=== PATIENT | male | born 1965 | race Caucasian/White ===

== ENCOUNTER 2016-11-14 18:51 | Inpatient (IN) | payer OTHER ==
[2016-11-14] MEDS ORDERED: LABETALOL HCL 50 MG/10 ML SYR IVP ONE ×2 (19:12→20:02)
[2016-11-14] MEDS ORDERED: LABETALOL HCL 5 MG/ML 20 ML MDV ONE (19:12)
--- NOTE | 2016-11-14 19:33 | EDPHY ---
H & P Time Seen by Provider: 11/14/16 19:11 HPI/ROS: CHIEF COMPLAINT: High blood pressure, headaches HISTORY OF PRESENT ILLNESS: The patient is a 51-year-old male who presents emergency department from his primary care physician office (Dr. Stewart.) Patient states he has not had any evaluation from a doctor in the past 10 years. 1 year ago he struck his head while at work. He had a hematoma but did not lose consciousness. Since that time he developed severe "migraine headaches." They occur intermittently. When he saw the primary care physician today had a mild dull pain in his head. This was not a typical migraine headache. There she noticed significant hypertension and sent the patient to the emergency department. Patient currently complains of a mild dull headache. No weakness or numbness. No visual change. No neck or chest pain. No nausea or vomiting. REVIEW OF SYSTEMS: My complete review of systems is negative except as mentioned in the HPI. Past Medical/Surgical History: Negative Past surgical history: Tonsillectomy Social history: The patient smoked THC regularly but quit 1 week ago. Smoking Status: Former smoker Physical Exam: Vitals noted. To 66/169, 90, 18, 93% on room air, 37.1 GENERAL: Well-appearing, in no acute distress, alert. HEENT: Eyes normal to inspection, normal pharynx, no signs of dehydration. NECK: No thyromegaly, no lymphadenopathy, supple. RESPIRATORY: Clear to auscultation bilaterally, no rales, rhonchi or wheezing. CVS: Regular rate and rhythm, no rubs, murmurs, or gallops. ABDOMEN: Soft, nontender, nondistended, no organomegaly. BACK: Normal to inspection, no CVA tenderness. SKIN: Normal color, no rash, warm, diaphoresis. No pallor. EXTREMITIES: No pedal edema, no calf tenderness, no Homans sign or cords, no joint swelling. NEURO/PSYCH: Higher functions: Alert and Oriented x3. Normal speech and cognition. Normal mood and affect. Cranial nerves: Normal as tested. Cerebellar: Normal as tested. Good finger to nose, good [id number], normal gait. Peripheral exam: Normal motor exam. Normal sensation. Normal reflexes. Constitutional: Initial Vital Signs Temperature (C) 37.1 C 11/14/16 19:02 Heart Rate 90 11/14/16 19:02 Respiratory Rate 18 11/14/16 19:02 Blood Pressure 266/169 H 11/14/16 19:02 O2 Sat (%) 93 11/14/16 19:02 O2 Delivery Mode Room Air Allergies/Adverse Reactions: No Known Allergies Allergy (Verified 11/14/16 21:19) Home Medications: Medication Instructions Recorded Acetaminophen [Tylenol ES 500 mg 1,000 mg PO TID PRN 11/14/16 (*)] Aspirin [Aspirin 325 mg (*)] 325 - 975 mg PO DAILY PRN 11/14/16 Herbals/Supplements -Info Only 1 ea PO DAILY 11/14/16 ZOLMitriptan [Zomig 2.5MG (*)] 2.5 mg PO DAILY PRN 11/14/16 Medical Decision Making - Diagnostics EKG Interpretation: The sinus rhythm at 65. Normal axis. Prolonged QT. LVH. ST elevation anteriorly. This likely secondary to LVH. EKG 2. Sinus rhythm at 51. Normal axis. Prolonged QT. LVH. ST elevation anteriorly. This seems slightly worse. Imaging Results: Imaging Impressions Chest X-Ray 11/14/16 20:17 Impression: 1. Mild peribronchial thickening suggesting airways disease/bronchitis. 2. Additional findings as above. ED Course/Re-evaluation: In the emergency department I discussed possible etiologies with the patient. I answered all his questions. Laboratory studies, EKG, chest x-ray, head CT were ordered. Patient was given labetalol 10 mg IV. I rechecked the patient on numerous occasions. His blood pressure did initially trend down but then came back up. He is given labetalol 10 mg IV repeat dose. Patient was also given clonidine 0.2 mg orally. I rechecked the patient. He continued to have hypertension. His laboratory studies were noted abnormal. He had a low potassium of 2.5. His creatinine was elevated at 3.0. His troponin was elevated at 0.2. ASA 324 po. Because of the patient's continued elevated pressures he was started on nitroprusside. This will be started at 0.3 micrograms/kilogram per minute. This will be titrated up to 10 micrograms/kilogram per minute to recheck the systolic blood pressure of 170. I discussed the findings with the patient. I answered all his questions. I contacted the hospitalist service for admission. 2100: The patient had a 2nd IV placed. During this time he had a bradycardic event. He became diaphoretic. Pacer pads were placed. He was moved to the resuscitation room. I discussed this with the hospitalist, Dr. cedillo. I paged Cardiology to inform them of the patient's hypertensive emergency, bradycardia and elevated troponin. Repeat EKG was ordered. Repeat EKG shows sinus rhythm at 51. Normal axis. LVH. ST elevation V1 through V3. Flipped T-waves V3 through V 5. This seemed to be slightly increased from the previous EKG. I discussed case with Dr. Derek Mckeon. He agreed with the plan thus far. I paged Dr. Valdivia. I discussed the EKG findings as well as his elevated troponin and presentation. He will review the EKG and call me back. Dr. Valdivia called back. He stated that he felt this was secondary to LVH. He did not want take the patient to the lab specialist at this time with no chest pain and elevated creatinine of 3.0. I explained this in depth to the patient. On recheck the patient's blood pressure had improved on Nipride. Patient has no headache. No chest pain or shortness of breath. Differential Diagnosis: My differential includes but is not limited to hypertensive emergency, hypertensive urgency, subarachnoid hemorrhage, subdural hematoma, epidural hematoma, migraine headaches, pain reaction, anxiety Critical Care Time: The patient required 50 minutes of critical care time. This was exclusive of any unbundled procedure. This was due to the patient's significant hypertension , need for frequent rechecks, IV medications labetalol, consultation with the hospitalist service. - Data Points Laboratory Results: Laboratory Results 11/14/16 19:13 11/14/16 19:13 11/14/16 11/14/16 11/14/16 19:13 19:13 19:13 WBC 11.64 10^3/uL H 10^3/uL (3.80-9.50) RBC 4.12 10^6/uL L 10^6/uL (4.40-6.38) Hgb 13.1 g/dL L g/dL (13.7-17.5) Hct 36.0 % L % (40.0-51.0) MCV 87.4 fL fL (81.5-99.8) MCH 31.8 pg pg (27.9-34.1) MCHC 36.4 g/dL g/dL (32.4-36.7) RDW 13.2 % % (11.5-15.2) Plt Count 126 10^3/uL L 10^3/uL (150-400) MPV 11.8 fL H fL (8.7-11.7) Neut % (Auto) 79.4 % H % (39.3-74.2) Lymph % (Auto) 10.7 % L % (15.0-45.0) [place] % (Auto) 8.6 % % (4.5-13.0) Eos % (Auto) 0.4 % L % (0.6-7.6) Baso % (Auto) 0.6 % % (0.3-1.7) Nucleat RBC Rel Count 0.0 % % (0.0-0.2) Absolute Neuts (auto) 9.24 10^3/uL H 10^3/uL (1.70-6.50) Absolute Lymphs (auto) 1.24 10^3/uL 10^3/uL (1.00-3.00) Absolute Monos (auto) 1.00 10^3/uL H 10^3/uL (0.30-0.80) Absolute Eos (auto) 0.05 10^3/uL 10^3/uL (0.03-0.40) Absolute Basos (auto) 0.07 10^3/uL 10^3/uL (0.02-0.10) Absolute Nucleated RBC 0.00 10^3/uL 10^3/uL (0-0.01) Immature Gran % 0.3 % % (0.0-1.1) Immature Gran # 0.04 10^3/uL 10^3/uL (0.00-0.10) PT 13.4 SEC SEC (12.0-15.0) INR 1.03 (0.83-1.16) APTT 31.9 SEC SEC (23.0-38.0) Sodium 137 mEq/L mEq/L (134-144) Potassium 2.5 mEq/L L* mEq/L (3.5-5.2) Chloride 95 mEq/L L mEq/L (97-110) Carbon Dioxide 27 mEq/l mEq/l (22-31) Anion Gap 15 mEq/L mEq/L (8-16) BUN 46 mg/dL H mg/dL (7-23) Creatinine 3.0 mg/dL H mg/dL (0.7-1.3) Estimated GFR 22 Glucose 122 mg/dL H mg/dL (70-100) Calcium 9.3 mg/dL mg/dL (8.5-10.4) Total Bilirubin 1.1 mg/dL mg/dL (0.1-1.4) Conjugated Bilirubin 0.5 mg/dL mg/dL (0.0-0.5) Unconjugated Bilirubin 0.6 mg/dL mg/dL (0.0-1.1) AST 34 IU/L IU/L (17-59) ALT 39 IU/L IU/L (21-72) Alkaline Phosphatase 66 IU/L IU/L (38-126) Troponin I 0.232 ng/mL H ng/mL (0-0.034) Total Protein 7.3 g/dL g/dL (6.3-8.2) Albumin 4.6 g/dL g/dL (3.5-5.0) Lipase 616.0 IU/L H IU/L (23-300) Medications Given: Discontinued Medications Clonidine (Catapres) 0.2 mg PO EDNOW ONE Stop: 11/14/16 20:04 Last Admin: 11/14/16 20:24 Dose: 0.2 mg Sodium Nitroprusside 50 mg/ (Sodium Chloride) 252 mls @ 0 mls/hr IV EDNOW ONE; Titrate PRN Reason: Protocol Stop: 11/14/16 20:50 Last Admin: 11/14/16 21:10 Dose: 252 mls Labetalol HCl (Labetalol Hcl) 10 mg IVP ONCE ONE Stop: 11/14/16 20:03 Last Admin: 11/14/16 20:05 Dose: 10 mg Labetalol HCl (Labetalol Hcl) 10 mg IVP EDNOW ONE Stop: 11/14/16 19:13 Last Admin: 11/14/16 19:12 Dose: 10 mg Potassium Chloride (Potassium Chloride Oral Liquid) 60 meq PO EDNOW ONE Stop: 11/14/16 20:50 Last Admin: 11/14/16 21:09 Dose: 60 meq Departure - Departure Disposition: [facility] Acute Clinical Impression: Hypertensive emergency, Elevated troponin Hypertension Qualifiers: Hypertension type: essential hypertension Qualified Code(s): I10 - Essential ( primary) hypertension Condition: Good
--- NOTE | 2016-11-14 20:02 | CPEKG ---
Heart Rate: 65 RR Interval: 923 P-R Interval: 168 QRSD Interval: 96 QT Interval: 508 QTC Interval: 529 P Redfield: 30 QRS Redfield: -12 T Wave Redfield: 150 EKG Severity - ABNORMAL ECG - EKG Impression: SINUS RHYTHM EKG Impression: LEFT ATRIAL ABNORMALITY EKG Impression: LVH WITH SECONDARY REPOLARIZATION ABNORMALITY EKG Impression: ANTERIOR ST ELEVATION, PROBABLY DUE TO LVH EKG Impression: PROLONGED QT INTERVAL Electronically Signed By: Roya Alcantar 14-Nov-2016 22:46:27
[2016-11-14 20:24] LABS: % IMMATURE GRANULYOCYTES 0.3 % (0.0-1.1); ABSOLUTE IMMATURE GRANULOCYTES 0.04 10^3/uL (0.00-0.10); ADD DIFF? NO; ADD MORPH? NO; ADD SCAN? NO; ATYPICAL LYMPHOCYTE FLAG 0 (0-99); FRAGMENT RBC FLAG 0 (0-99); HEMOGLOBIN 13.1 g/dL (13.7-17.5); LEFT SHIFT FLG 0 (0-99); LIPEMIA HEMOLYSIS FLAG 90 (0-99); MEAN CELL HEMOGLOBIN 31.8 pg (27.9-34.1); MEAN CELL HEMOGLOBIN CONCENTR. 36.4 g/dL (32.4-36.7); MEAN CELL VOLUME 87.4 fL (81.5-99.8); MEAN PLATELET VOLUME 11.8 fL (8.7-11.7); PLATELET CLUMPS FLAG 0 (0-99); PLATELET COUNT 126 10^3/uL (150-400); RED BLOOD CELL COUNT 4.12 10^6/uL (4.40-6.38); RED CELL DISTRIBUTION WIDTH 13.2 % (11.5-15.2)
[2016-11-14 20:28] LABS: INR 1.03 (0.83-1.16); PROTIME(PATIENT) 13.4 SEC (12.0-15.0)
[2016-11-14 20:29] LABS: APTT 31.9 SEC (23.0-38.0)
[2016-11-14 20:37] LABS: ALANINE AMINOTRANSFERASE 39 IU/L (21-72); ALBUMIN 4.6 g/dL (3.5-5.0); ALKALINE PHOSPHATASE 66 IU/L (38-126); ANION GAP 15 mEq/L (8-16); ASPARTATE AMINOTRANSFERASE 34 IU/L (17-59); BILIRUBIN,TOTAL 1.1 mg/dL (0.1-1.4); BILIRUBIN-CONJUGATED 0.5 mg/dL (0.0-0.5); BILIRUBIN-UNCONJUGATED 0.6 mg/dL (0.0-1.1); CALCIUM 9.3 mg/dL (8.5-10.4); CARBON DIOXIDE 27 mEq/l (22-31); CHLORIDE 95 mEq/L (97-110); GLOMERULAR FILTRATION RATE 22; GLUCOSE 122 mg/dL (70-100); SODIUM 137 mEq/L (134-144); TOTAL PROTEIN 7.3 g/dL (6.3-8.2)
[2016-11-14 20:48] LABS: POTASSIUM 2.5 mEq/L (3.5-5.2); TROPONIN I 0.232 ng/mL (0-0.034)
[2016-11-14] MEDS ORDERED: POTASSIUM CL 20 MEQ/15 ML UDCUP PO ONE (20:49)
[2016-11-14] MEDS ORDERED: NITROPRUSSIDE SODIUM IV ONE (20:49)
[2016-11-14] MEDS ORDERED: NS IV ONE (20:49)
[2016-11-14] MEDS ORDERED: POTASSIUM Cl (KCl) 100 ML IV ONE (20:50)
[2016-11-14] MEDS ORDERED: NITROGLYCERIN/D5W 50 MG/250 ML BOTTLE IV ONE (20:54)
[2016-11-14] MEDS ORDERED: ASPIRIN 81 MG CHEWABLE TAB ONE (21:02)
[2016-11-14] MEDS ORDERED: ASPIRIN 81 MG CHEWABLE TAB PO ONE (21:10)
--- NOTE | 2016-11-14 21:11 | CPEKG ---
Heart Rate: 51 RR Interval: 1176 P-R Interval: 172 QRSD Interval: 90 QT Interval: 548 QTC Interval: 505 P Lexa: 57 QRS Lexa: 12 T Wave Lexa: 134 EKG Severity - ABNORMAL ECG - EKG Impression: SINUS RHYTHM EKG Impression: LVH WITH SECONDARY REPOLARIZATION ABNORMALITY EKG Impression: ANTERIOR ST ELEVATION, PROBABLY DUE TO LVH EKG Impression: PROLONGED QT INTERVAL Electronically Signed By: Roya Alcantar 14-Nov-2016 22:46:27
[2016-11-14 23:24] LABS: ANION GAP 11 mEq/L (8-16); CALCIUM 8.6 mg/dL (8.5-10.4); CARBON DIOXIDE 23 mEq/l (22-31); CHLORIDE 99 mEq/L (97-110); GLOMERULAR FILTRATION RATE 22; GLUCOSE 135 mg/dL (70-100); SODIUM 133 mEq/L (134-144)
[2016-11-14 23:35] LABS: TROPONIN I 0.193 ng/mL (0-0.034)
[2016-11-15] MEDS ORDERED: ONDANSETRON 4 MG/2 ML VIAL IVP PRN (00:34)
[2016-11-15] MEDS ORDERED: NITROPRUSSIDE SODIUM 50 MG in D5W 250 ML IV SCH (01:00)
[2016-11-15 02:12] LABS: COLOR YELLOW; LEUKOCYTE ESTERASE,URINE NEGATIVE (NEGATIVE); NITRITE,URINE NEGATIVE (NEGATIVE)
[2016-11-15 02:17] LABS: MUCUS TRACE /lpf (NONE-1+)
[2016-11-15 04:36] LABS: % IMMATURE GRANULYOCYTES 0.3 % (0.0-1.1); ABSOLUTE IMMATURE GRANULOCYTES 0.02 10^3/uL (0.00-0.10); ADD DIFF? NO; ADD MORPH? NO; ADD SCAN? NO; ATYPICAL LYMPHOCYTE FLAG 0 (0-99); FRAGMENT RBC FLAG 0 (0-99); HEMATOCRIT 27.1 % (40.0-51.0); HEMOGLOBIN 9.5 g/dL (13.7-17.5); LEFT SHIFT FLG 0 (0-99); LIPEMIA HEMOLYSIS FLAG 90 (0-99); MEAN CELL HEMOGLOBIN 31.1 pg (27.9-34.1); MEAN CELL HEMOGLOBIN CONCENTR. 35.1 g/dL (32.4-36.7); MEAN CELL VOLUME 88.9 fL (81.5-99.8); MEAN PLATELET VOLUME 10.5 fL (8.7-11.7); PLATELET CLUMPS FLAG 0 (0-99); PLATELET COUNT 73 10^3/uL (150-400); RED BLOOD CELL COUNT 3.05 10^6/uL (4.40-6.38); RED CELL DISTRIBUTION WIDTH 13.2 % (11.5-15.2)
[2016-11-15] MEDS: ACETAMINOPHEN 500 MG TAB PO PRN (04:48)
[2016-11-15] MEDS: hydrALAZINE 20 MG/ML VIAL IVP PRN (04:50)
[2016-11-15] MEDS: HEPARIN 5,000 UNIT/0.5 ML SYR SC SCH ×3 (04:51→22:34)
--- NOTE | 2016-11-15 06:36 | GHP ---
[f rep st] HISTORY AND PHYSICAL DATE OF ADMISSION: 11/14/2016 CHIEF COMPLAINT: Headache. HISTORY: The patient is a 51-year-old male who has not seen a physician in 10 years. He made an in itial appointment with a primary care provider, Dr. Stewart, today, was found to have a blood pressu re 266/169, and was sent to the emergency room. He has been having headaches for the last year. Th is started with a significant head injury while at work. Over the last year, he has been having adam ernie-like headaches since the head injury including nausea vomiting or photophobia. He has these e very few weeks. Recently they have been coming on with more severity and increased frequency. His most recent headache episode has been going for 6 days. He has also noted shortness of breath with exertion for the last few weeks. His headache gets worse with bending over. He did not have any ch est pain, until after being admitted to ICU he developed a little bit of chest tightness while the e chocardiogram was being performed. This got better when he moved around in the bed. Initial blood pressure was 266/169. He was given IV labetalol and oral clonidine in the emergency r oom. He was then started on a Nipride drip. He had a bradycardic episode with diaphoresis twice si nce admission. Cardiology reviewed his EKGs and felt that the ST elevations were due to LVH, and he was not felt to be a STEMI. No cardiac catheterization has been pursued. They ordered a stat echo which did occur, results pending. PAST MEDICAL HISTORY: Negative. PAST SURGICAL HISTORY: Tonsillectomy. MEDICATIONS: Please see computer record for full detailed list. ALLERGIES: No known drug allergies. SOCIAL HISTORY: No smoking. Occasionally, he will have a beer. He was a daily marijuana smoker bu t quit 1 week ago in an attempt to get healthier. 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 REVIEW OF SYSTEMS: Complete review of systems obtained. Review of systems is negative regarding co nstitutional, HEENT, GI, pulmonary, cardiovascular, , hematology, musculoskeletal, endocrine, psyc h except for positives and negatives as in HPI. FAMILY HISTORY: Father had a CABG in his 70s. He had an aunt who of an [place] in her 80s. There is no reported history of early coronary disease or stroke. PHYSICAL EXAMINATION: GENERAL: Well-developed, well-nourished male in no acute distress. VITAL SI GNS: Temperature is 36.9, pulse 70, blood pressure 155/101, saturating 96% on room air. EYES: Nor mal conjunctivae. Pupils react to light. ENT: Normal ears and nose. Hearing intact. Normal lips and teeth. Oropharynx moist. NECK: Trachea midline. No thyromegaly. CHEST: Normal respiratory effort. Lungs clear to auscultation bilaterally. CARDIOVASCULAR: Regular rate and rhythm. No mu rmur. No lower extremity edema. ABDOMEN: Soft, nontender. No hepatosplenomegaly. SKIN: Warm, d ry, intact without rash. MUSCULOSKELETAL: No cyanosis or clubbing. Strength 5/5 upper and lower e xtremities. NEURO: Cranial nerves intact. Normal sensation to light touch. PSYCH: Alert and sheldon ented x3. Normal affect. Normal judgment and insight. Normal memory. LABORATORY DATA: White count 11.64, hematocrit 36.6, platelets 127. Sodium 137, potassium 2.5, chl oride 95, bicarb 27, BUN 46, creatinine 3.0, glucose 122. LFTs are negative. INR is 1.03. Troponi n 0.232, followup is going down. Lipase is 616. EKG viewed by me. My personal interpretation is normal sinus rhythm. There is some fairly dramatic anterior ST-elevation which may be due to ischemia versus LVH. Chest x-ray is negative. Head CT is negative for anything acute. ASSESSMENT/PLAN: 1. Hypertensive emergency. Continue IV Nipride drip as started in the emergency room. We cannot u se TITO inhibitors due to his creatinine elevation. I am also going to avoid beta-blockers tonight d ue to 2 symptomatic bradycardic episodes he has had since arrival. I will start him on oral Norvasc . We can also use IV hydralazine. 2. Acute renal failure likely secondary to uncontrolled hypertension. Will hydrate with IV fluids. Will check a renal ultrasound as well as a urinalysis and urine electrolytes. 3. ST elevations on EKG with borderline troponin elevation. I suspect this is strain due to his un controlled hypertension more than an acute ischemic event. Cardiology has reviewed his EKG and do n ot plan to proceed with cardiac catheterization tonight especially given the fact this catheterizati on would be high risk with his creatinine elevation. He is chest pain-free. 4. Hypokalemia. He got 60 mEq oral potassium in the ER. Will allow that to absorb and recheck in a few hours. Do not want to aggressively replete given his creatinine level. CODE STATUS: Full. ADMISSION STATUS: Will admit to inpatient as he is critically ill. Anticipate greater than 2 midni ghts for stabilization. DEEP VENOUS THROMBOSIS PROPHYLAXIS: He is high risk. Will place on subcu heparin. /[id number]/MODL
[2016-11-15 06:57] LABS: ANION GAP 9 mEq/L (8-16); CALCIUM 8.1 mg/dL (8.5-10.4); CARBON DIOXIDE 23 mEq/l (22-31); CHLORIDE 99 mEq/L (97-110); CHOLESTEROL 145 mg/dL (140-220); CREATININE 2.9 mg/dL (0.7-1.3); GLOMERULAR FILTRATION RATE 23; GLUCOSE 211 mg/dL (70-100); HIGH DENSITY LIPOPROTEIN 44 mg/dL (40-65); LDL/HDL RATIO 1.89 RATIO (1.00-3.64); LOW DENSITY LIPOPROTEIN 83 mg/dL (80-100); MAGNESIUM 2.2 mg/dL (1.6-2.3); NON-HIGH DENSITY LIPOPROTEIN 101 mg/dL (90-129); POTASSIUM 2.8 mEq/L (3.5-5.2); SODIUM 131 mEq/L (134-144); TRIGLYCERIDE 94 mg/dL (40-150); VERY LOW DENSITY LIPOPROTEINS 18 mg/dL (8-25)
[2016-11-15 07:08] LABS: TROPONIN I 0.218 ng/mL (0-0.034)
[2016-11-15] MEDS ORDERED: hydrALAZINE 20 MG/ML VIAL IVP ONE (07:45)
[2016-11-15] MEDS ORDERED: POTASSIUM CL 20 MEQ TAB PO ONE (07:45)
[2016-11-15] MEDS ORDERED: ALTEPLASE 2 MG VIAL IVP PRN (07:47)
--- NOTE | 2016-11-15 08:02 | ECHO ---
[id number] + + [address] : : [place] [address] : : [phone] + + Adult Echocardiographic Report + --------+ :Name: JESÚS CORTEZ Bravoivis Date: 11/14/2016 11:25 PM BP: 152/97 mm Hg : : Hospital Admission Number: [id number] Locat ion: 247: :: 1965 Gender: Male Height: 72 in : :Age: 51 yrs Race: WH Weight: 203 l b : :Reason For Study: r/o ai : : BSA: 2.1 mete rs2 : :History: htn : + --------+ MMode/2D Measurements \T\ Calculations IVSd: 1.8 cm RVDd: 3.2 cm FS: 36.8 % Ao root diam: LVPWd: 1.7 cm LVIDd: 5.6 cm EDV(Teich): 3.0 cm LVIDs: 3.5 cm 150.8 ml LA dimension: ESV(Teich): 4.8 cm 51.2 ml EF(Teich): 66.1 % LVLd ap4: 11.4 cm SV(MOD-sp4): EDV(MOD-sp4): 182.0 ml 267.0 ml LVLs ap4: 9.2 cm ESV(MOD-sp4): 85.0 ml EF(MOD-sp4): 68.2 % Normal Measurement Values: + + :LVIDd (3.5-5.7cm) IVSd (0.6-1.1cm) LVPWd (0.6-1.1cm) Aortic Root (2.0-3.7cm)Left Atrium (1.5-4.0cm): :LV Vol(d) (76-115ml) LV Vol(s) (29-48ml) Ejec Fraction (50-65%)PV Gilmer (0.6- 1.2m/s) TV Gilmer (0.4-1.0m/s) : :MV E Gilmer (0.8-1.0m/s)MV A Gilmer (0.3-1.0m/s)LVOT Gilmer (0.7-1.2m/s) Asc Ao Gilmer ( 0.9-1.8m/s) : + + Doppler Measurements \T\ Calculations MV E max gilmer: Ao V2 max: AI max gilmer: LV V1 max: 74.5 cm/sec 132.7 cm/sec 492.5 cm/sec 118.0 cm/sec MV A max gilmer: Ao max PG: AI max P.7 mmHg LV V1 max P.4 cm/sec 7.0 mmHg AI dec slope: 5.6 mmHg MV E/A: 0.88 232.7 cm/sec2 MV dec time: AI P1/2t: 619.8 msec 0.20 sec PA V2 max: 107.5 cm/sec PA max P.6 mmHg Left Ventricle The left ventricle is normal in size and function. There is severe concentric left ventricular hypertrophy. Ejection Fraction = 65%. No regional wall motion abnormalities noted. Right Ventricle The right ventricle is normal in size and function. Atria The left atrium is severely dilated. The Left Atrial Volume is 51 ml/m2. Right atrial size is normal. Mitral Valve The mitral valve is normal in structure and function. There is no mitral valve stenosis. There is mild mitral regurgitation. Tricuspid Valve The tricuspid valve is normal in structure and function. There is no tricuspid stenosis. No tricuspid regurgitation. Aortic Valve The aortic valve is trileaflet. There is no aortic stenosis. Moderate aortic regurgitation. Pulmonic Valve The pulmonic valve is normal in structure and function. Trace pulmonic valvular regurgitation. Great Vessels The aortic root is normal size. Mildly dilated ascending aorta. Conclusion A two-dimensional transthoracic echocardiogram with M-mode and Doppler was performed. The left ventricle is normal in size and function. There is severe concentric left ventricular hypertrophy. Ejection Fraction = 65%. The left atrium is severely dilated. The Left Atrial Volume is 51 ml/m2. There is mild mitral regurgitation. Moderate aortic regurgitation. Trace pulmonic valvular regurgitation. Mildly dilated ascending aorta. Final Reading Physician: Renard Crowe signed on 11/15/2016 08:01 AM Ordering Physician: Hailee Thompson Performed By: Celine Damico
[2016-11-15] MEDS: ASPIRIN EC 325 MG TAB PO SCH (08:20)
[2016-11-15] MEDS: niCARdipine/NACL 200 ML IV SCH ×6 (08:20→22:34)
--- NOTE | 2016-11-15 08:47 | CPEKG ---
Heart Rate: 81 RR Interval: 741 P-R Interval: 160 QRSD Interval: 96 QT Interval: 412 QTC Interval: 479 P Iuka: 59 QRS Iuka: 9 T Wave Iuka: 171 EKG Severity - ABNORMAL ECG - EKG Impression: SINUS RHYTHM EKG Impression: BIATRIAL ABNORMALITIES EKG Impression: LVH WITH SECONDARY REPOLARIZATION ABNORMALITY EKG Impression: BORDERLINE PROLONGED QT INTERVAL Electronically Signed By: Tita Osborne 15-Nov-2016 17:05:55
--- NOTE | 2016-11-15 08:57 | GCON ---
[f rep st] CONSULTATION CARDIAC CONSULTATION DATE OF CONSULTATION: 11/15/2016 CHIEF COMPLAINT: Hypertensive emergency, abnormal EKG. HISTORY OF PRESENT ILLNESS: This is a 51-year-old gentleman who has not seen a physician in over 10 years. He apparently had some head trauma at work a year ago and has had some migraines. Yesterda y he saw his primary care doctor because of these migraines and that he had a significantly elevated blood pressure in the 250/160 range. He was sent to the emergency room where he was not complainin g of any chest pain, shortness of breath, palpitations, or syncope. His EKG showed LVH with nonspec ific anterior ST changes on 2 subsequent EKGs. His blood pressure was initially controlled with melanie e labetalol, however, he had what appeared to be a vasovagal reaction. He does have a significant n eedle phobia. He was then placed on Nipride with benefits. His troponins were mildly elevated in t he indeterminate range. He had an echocardiogram which subsequently showed significant concentric L VH, mild aortic insufficiency, mild tricuspid and mitral insufficiency, no pulmonary hypertension. The patient did not have a regional wall motion abnormality. Also of note, was that his potassium w as 2.5, his creatinine was 3.0. Once again, the patient had not seen a physician in over 10 years b ut in speaking to him and confirmed by his , he has been active without active GI or complain ts, no diarrhea, no other issues of fever, chills, nausea, vomiting. PAST MEDICAL HISTORY: Migraines. SURGICAL HISTORY: Tonsillectomy. MEDICATIONS: He was taking no medicines at home. ALLERGIES: No known allergies. EXAM: VITAL SIGNS: Blood pressure is 169/92, however, it has been fluctuating. The patient is on IV Nipride. GENERAL: He is in no acute distress. He is seen with his . MOUTH: Oropharynx is clear and moist. LUNGS: Clear. CARDIOVASCULAR: Regular rate and rhythm with a systolic murmur. No JVP or HJR. ABDOMEN: Soft and nontender. MUSCULOSKELETAL: No signs of clubbing or edema. ASSESSMENT: Hypertension urgency, question chronicity especially given his lack of medical care. A t this point, he is not having any acute coronary syndrome. He does have a flat indeterminate tropo neal bump. EKG showed nonspecific anterior changes probably secondary to LVH. EKG confirms severe c oncentric LVH without ischemic wall motion abnormality. The patient has been on IV Nipride at this point. Clearly given this patient's clinical presentation, hypokalemia, probable acute if not acute /chronic renal failure, hypertension, whether these are related needs to be sorted out. I did make a call into Checo Maradiaga of renal who will see the patient as well. A renal ultrasound was done. I t alked to the and at length about our findings; and at this point, he will need hospital ization to figure out the causative agents for his various abnormalities. The patient has a signifi cant needle phobia. A PICC line will be performed. He has received p.o. and IV potassium last even ing but continues to have a low potassium, no arrhythmias are noted. PLAN: 1. Hypertension control. 2. Electrolyte replacement. 3. Renal consult to help direct further workup as needed. Questions were answered. Further care dependent on his clinical course. /[id number]/MODL
[2016-11-15] MEDS ORDERED: ENOXAPARIN 40 MG/0.4 ML SYR SC SCH (09:00)
--- NOTE | 2016-11-15 09:42 | SOAPPROG ---
SOAP Progress Note Assessment/Plan: Assessment:Plan: Consult Performed HTN Severe LVH Moderate AI Hypokalemia Renal Failure Hematuria and Proteinuria Anemia and Thrombocytopenia Vasovagal/Bradycardia with blood draws Headaches WM changes on CT head Mild confusion Assess for secondary HTN Start Nicardipine drip to take place of IV nipride Start scheduled PO hydralazine Continue prn IV hydralazine Continue PO amlodipine Replace K with scheduled and prn dosing Serologic work-up for hematuria and proteinuria Sondra, renin, plasma catecholamines Add low-dose TITO-i once sondra and renin obtained Consider repeat challenge with low-dose labetalol if no further bradycardia 11/15/16 09:42 Objective: Vital Signs Temp Pulse Resp BP Pulse Ox 36.9 C 82 17 169/96 H 100 11/14/16 22:28 11/15/16 05:33 11/15/16 05:33 11/15/16 08:20 11/15/16 05:33 Laboratory Results 11/15/16 04:20 11/15/16 04:20 11/14/16 11/15/16 11/16/16 05:59 05:59 05:59 Intake Total 1729 400 Output Total 280 250 Balance 1449 150 PT 13.4 SEC (12.0-15.0) 11/14/16 19:13 INR 1.03 (0.83-1.16) 11/14/16 19:13 ICD10 Worksheet Patient Problems: Problems Problem Status Onset Elevated troponin Acute Hypertension Acute Hypertensive emergency Acute
--- NOTE | 2016-11-15 09:43 | HOSPPROG ---
Hospitalist Progress Note Assessment/Plan: #Hypertensive emergency: -appreciate Dr. Mckeon's, Dr. Maradiaga's consultation -cont IV Nicardipine due low supply nipride. Scheduled Hydral -caution with Labetalol with severe bradycardia in ER - CTH negative for ischemia #ARF vs. CKD: appreciate renal consultation -full evaluation including aldosterone, renin, complements, LEONA, ANCA, SPEP, mets -start ACEI once labs obtained. No renal artery stenosis on US #Indeterminate troponin -due to elevated BP. Not acutely having ACS. EKG with LVH, no wall motion abnormalities #Nausea: related to HTN, improved with BP reduction #Hypokalemia: repleting #Hypovolemic hyponatremia -give IVFs despite high BP, bc these patients in fact are very volume-depleted #Diet: regular #DVT ppx: SQH Disp: warrants ICU admission with HTN emergency. Cont IV anti-hypertensives, telemetry Subjective: no AVALOS or nausea this morning. No CP or SOB Objective: Vital Signs Temp Pulse Resp BP Pulse Ox 36.9 C 82 17 169/96 H 100 11/14/16 22:28 11/15/16 05:33 11/15/16 05:33 11/15/16 08:20 11/15/16 05:33 Laboratory Results 11/15/16 04:20 11/15/16 04:20 11/14/16 11/15/16 11/16/16 05:59 05:59 05:59 Intake Total 1729 400 Output Total 280 250 Balance 1449 150 PT 13.4 SEC (12.0-15.0) 11/14/16 19:13 INR 1.03 (0.83-1.16) 11/14/16 19:13 - Physical Exam Constitutional: no apparent distress Eyes: PERRL Ears, Nose, Mouth, Throat: moist mucous membranes, hearing normal Cardiovascular: regular rate and rhythym, no murmur, rub, or gallop, systolic murmur, edema (no LE edema) Respiratory: no respiratory distress Gastrointestinal: normoactive bowel sounds, soft, non-tender abdomen Genitourinary: no bladder fullness Musculoskeletal: full muscle strength Neurologic: AAOx3 Psychiatric: interacting appropriately ICD10 Worksheet Patient Problems: Problems Problem Status Onset Elevated troponin Acute Hypertension Acute Hypertensive emergency Acute
[2016-11-15] MEDS: POTASSIUM CL 20 MEQ TAB PO SCH ×3 (11:40→20:04)
[2016-11-15] MEDS: hydrALAZINE 25 MG TAB PO SCH ×3 (11:40→20:04)
--- NOTE | 2016-11-15 12:17 | GCON ---
[f rep st] CONSULTATION NEPHROLOGY CONSULTATION. DATE OF CONSULTATION: 11/15/2016 REASON FOR CONSULTATION: 1. Hypertension. 2. Hypokalemia. 3. Increased creatinine. 4. Hematuria, proteinuria. RECOMMENDATION: 1. Start oral medications. 2. Change from IV Nipride to IV nicardipine due to issues getting consistent supply of Nipride. 3. Continue current calcium channel malathi. 4. Use scheduled hydralazine 25 mg 4 times daily. 5. Continue IV intermittent hydralazine p.r.n. blood pressures greater than 160 systolic. 6. Target blood pressures per Cardiology's recommendation. They have currently desired blood pressures of 130-150 systolic. 7. Perform serologic workup due to the patient's hematuria and proteinuria. 8. Quantify urine protein. 9. Check plasma renin aldosterone and plasma catecholamines. 10. Consider trial of low-dose labetalol if the patient does not experience any further bradycardia. 11. Follow up on renal ultrasound results. 12. Supplement potassium with scheduled as well as p.r.n. dosing. 13. Consider further imaging once results of his blood tests and renal ultrasound have returned. 14. Start low-dose TITO inhibitor once his blood work has been obtained. I will order the dose once nurses confirm his renin and aldosterone samples have been obtained. 15. Start regular diet. 16. Placed PICC line as planned. 17. Continue gentle IV hydration. HISTORY: The patient is a very pleasant 51-year-old male I have been asked to consult on by Dr. Derek Mckeon regarding his severe hypertension. He had been having trouble with headaches. He evidently sought attention at his primary care doctor's office. There, his blood pressure was found to be extremely elevated. He was sent to the emergency room for further evaluation and treatment. In the emergency room, his blood pressure was found to be as high as 266/169. He was placed on IV medications in the form of Nipride. He was given 2 doses of labetalol 10 mg IV. Concurrent with his labetalol dosing, the patient was undergoing a blood draw. He has significant fear of venipuncture. He experienced bradycardia per Dr. Mckeon's report as low as 20, but I see a heart rate of 45 documented here in the chart. It sounds like he had 1 other episode of bradycardia associated with either a blood draw or flushing of his IV here in the ICU. For this reason, additional doses of labetalol have not been used. The patient is going to get a PICC line so that blood sampling can be performed with hopefully less complications. Evidently, the patient has been responsive to Nipride but there are currently issues with getting a regular supply of this. For this reason, Dr. Mckeon ordered nicardipine this morning. The patient has been getting p.r.n. hydralazine. He has gotten p.r.n. clonidine. He has been started on amlodipine 10 mg a day. PAST MEDICAL HISTORY: Remarkable for the fact he has had no medical care. He describes having intermittent headaches that were not severe in nature prior to this. He would have headaches associated with caffeine withdrawal. Occasionally, he would have an aura of colors associated with his headaches. Over the last year, his headaches have been more severe. He describes this as being precipitated by a head injury at work. He evidently hit his head quite severely when getting up from underneath a stage that he was working on. 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 Evidently, he was getting out from under such a stage of a portable set when he hit his head on a steel support when standing up. He had a very large lump on his head. He had headaches during this time. 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 He experience head, neck and shoulder pain. He said he had symptoms of nausea, poor appetite, and felt like he could not think straight as a result of those 2 episodes. He never sought medical attention for these symptoms. His symptoms gradually cleared but he continued to have intermittent severe headaches that were sometimes associated with this visual aura of colors. He says the aura typically lasts 20 minutes. Sometimes it is followed by a headache and sometimes it is not. There are no clear precipitating factors to these headaches. He has not had any recent checks of his blood pressure. He describes 6 years ago having a blood pressure check in the grocery store where he saw his blood pressure was near the normal range. He does not remember any of the readings. PAST MEDICAL HISTORY: His only other medical history is surgical history for tonsillectomy. FAMILY HISTORY: He has family history of coronary disease with his father having a bypass surgery when he was 70. His father also had hypertension. He does not describe any early onset hypertension in his family. He does have an aunt on his father's side who had coronary disease and a fatal NV at age 80. SOCIAL HISTORY: His father was a family practitioner out in [place]. The patient is 1 of 3 brothers. He grew up in [place]. He went to school for a few years at [employer]. He moved to [place] 22 years ago and has been in [place] the last 21 years. His is a schoolteacher at [employer]. They have no children. He states he tends to get nauseated when he has an empty stomach. Even if he drinks fluids, he remains nauseated, but this does seem to help. 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 He has no recent diarrheal illnesses. He does not eat beef. The remainder of his family and social history are noncontributory. He has had no joint pains. He has no skin rashes. He uses saw palmetto, a homeopathic sleep aid and a Men' s over 50 MVI. He has used cannabis up until this last week or so. He does not take any other OTC's, recreational drugs or other supplements. PHYSICAL EXAMINATION: VITAL SIGNS: His blood pressures were as low as the 120s over 70s when I was examining. At that time, the Nipride ran out and his blood pressure quickly went up to readings of 180/100. APPEARANCE: No apparent distress. SKIN: Unremarkable. HEENT: Atraumatic, normocephalic. NECK: Unremarkable. HEART: Regular, a split S2. LUNGS: Clear. ABDOMEN: Benign. Positive bowel sounds. Soft, nontender. No rebound or guarding. EXTREMITIES: Free of edema. Distal pulses intact. Femoral pulses 3/4 without bruits. No abdominal bruits noted. Carotid upstrokes are normal without bruits. Radial pulses are symmetric and strong. LABORATORY: Urinalysis on admission showed blood and protein with 3+ protein and 2+ blood. On my exam today, he has 1+ protein and no blood on dipstick. Microscopic shows granular casts, broad casts, waxy casts, and 1 white blood cell casts. He has no dysmorphic red blood cells. He does not have any other suggestion of an active urinary sediment. He does have some muddy brown casts as one might expect with this severe high blood pressure suggesting some tubular injury. Urine sodium was 17, urine creatinine 130. Hematology: He had a platelet count that was low at 126 on admission. That has gone down to 73. Hematocrit 36 going down to 27. Chemistry shows a potassium as low as 2.5 and creatinine of 3 that is unchanged overnight. His potassium has come up slightly. ASSESSMENT: Renal insufficiency. It is hard to know how much of this is acute versus chronic. With the presence of broad and waxy casts, there certainly has to be some chronic kidney injury in this patient. Another issue that suggests that his hypertension has been severe and chronic is the severe left ventricular hypertrophy noted on his echocardiogram. He has both left ventricular hypertrophy as well as some aortic insufficiency with a preserved left ventricular ejection fraction. Although he does have hematuria and proteinuria on dipstick, I do not think a primary nephritic disorder is responsible for the patient's current presentation. I think I am obligated to perform serologic workup in this setting, although I suspect it will be negative. He has severe high blood pressure. He needs a complete secondary hypertension workup, which is underway. Even though he presents with extremely high blood pressure, this could represent essential hypertension that has accelerated in the untreated state. We will see how easily his blood pressure comes under control once we are able to get him on a combination of oral agents. I will start an TITO inhibitor once we get his renin and aldosterone levels drawn. Continuing IV fluid as well as potassium supplementation in the acute setting is important to help counteract some of the dysregulation the patient is experiencing. I expect the hematuria and proteinuria on dipstick is an acute finding and will go away once his blood pressure comes under control. At the present time, we will follow up on his ultrasound reports. He does not need other imaging of his renal arteries or his adrenal glands at this time until we get the results from his blood testing. Acutely, I would check plasma catecholamines, aldosterone, and renin. I would not perform other testing until his blood pressure has been adequately controlled. Other testing in the acute setting can lead to false negative or indeterminate results that would not be helpful with regard to guiding therapy at this time. Although he has anemia and thrombocytopenia, I do not think these findings in isolation are likely to represent hemolytic uremic syndrome or thrombotic thrombocytopenic purpura. I do not think he needs acute treatment with plasmapheresis for the hypertension and renal failure as I think those diagnoses are unlikely to be causing his current illness. /[id number]/MODL MTDD
[2016-11-15] MEDS: NS 1,000 ML IV SCH (12:43)
[2016-11-15 15:42] LABS: POTASSIUM 2.8 mEq/L (3.5-5.2)
[2016-11-15] MEDS: POTASSIUM Cl (KCl) 100 ML IV SCH ×2 (17:17→17:18)
[2016-11-15] MEDS: LISINOPRIL 5 MG TAB PO SCH (17:40)
--- NOTE | 2016-11-15 21:28 | GCON ---
[f rep st] CONSULTATION CRITICAL CARE CONSULT. DATE OF CONSULTATION: 11/15/2016 HISTORY: This patient is a 51-year-old male, who is not normally followed by any healthcare provide rs, who was found to have blood pressure when he finally did see a primary care doctor of 266/169. He was sent to the emergency department and did complain of intermittent headaches over the last yea r, thought to be migraines. He did have a head injury over a year ago and has been having complaint s of bad headaches since that time that have been associated with nausea, vomiting, and some photoph obia. Once he was found to have a very high blood pressure, he was give IV labetalol and clonidine in the emergency department and started on a Nipride drip. He did have a brief period of bradycardi a with blood draws and came up to the ICU on drip, which has kept his blood pressure under control c urrently. REVIEW OF SYSTEMS: Otherwise negative. PAST MEDICAL HISTORY: None until now. PAST SURGICAL HISTORY: Remote tonsillectomy. ALLERGIES: None. SOCIAL HISTORY: He is a nonsmoker. Has a rare beer, but no IV drug use. FAMILY HISTORY: Includes coronary disease but no stroke. MEDICATIONS: Include aspirin, heparin, hydralazine which was started on a scheduled dose today, mor phine p.r.n., Cardene drip, Zofran, potassium, and Zomig. PHYSICAL EXAMINATION: VITAL SIGNS: His blood pressure now 138/69, heart rate of 75, respirations 1 4, oxygen saturation is 95% on room air. GENERAL: He was awake and alert in no apparent distress, able to speak in full sentences without using accessory muscles for breathing. HEENT: Pupils are e qually round and reactive to light, nonicteric and noninjected. Moist membranes are moist without e rythema or exudate. NECK: Supple without adenopathy or jugular vein distention. Breath sounds wer e clear to auscultation bilaterally without wheezes, rubs, rales. HEART: Regular rate and rhythm w ithout murmurs, rubs or gallops. ABDOMEN: Soft, nontender, nondistended without hepatosplenomegaly . EXTREMITIES: No clubbing, cyanosis or edema. NEUROLOGIC: Nonfocal including cranial nerves and deep tendon reflexes. OBJECTIVE DATA: White count was 11.6 yesterday. It is now 7.4. Hematocrit 27, platelets of 73. S odium is 131, potassium 2.8, chloride 88, bicarb 23, BUN 44, creatinine 2.9, magnesium 2.2. BNP 16, 700. Troponin was 0.193, went up to 0.218. Lipase was 616. Urinalysis showed 3+ protein, 2+ blood , and sodium of 17. An echocardiogram was performed yesterday that showed no wall motion abnormalit ies, an ejection fraction of 65%, but severe concentric left ventricular hypertrophy. ASSESSMENT: 1. Hypotensive emergency. His blood pressure has gotten better and is probable too low for his nor mal pressure. Renal consult has been involved and is managing his workup for secondary causes, thou yael the leading diagnosis at this point is poorly controlled essential hypertension. 2. Troponin leak. I think with that high of a blood pressure and his acute kidney injury, that thi s is not likely to be ischemia, and I believe Cardiology is already involved. 3. Acute kidney injury. Again, probably related to hypertension. He has excellent urine output. Urine studies are currently pending. /[id number]/MODL
[2016-11-15 23:03] LABS: POTASSIUM 3.6 mEq/L (3.5-5.2)
[2016-11-16 05:21] LABS: ALBUMIN 3.2 g/dL (3.5-5.0); ANION GAP 6 mEq/L (8-16); CALCIUM 8.4 mg/dL (8.5-10.4); CARBON DIOXIDE 21 mEq/l (22-31); CHLORIDE 106 mEq/L (97-110); CREATININE 3.1 mg/dL (0.7-1.3); GLOMERULAR FILTRATION RATE 21; GLUCOSE 90 mg/dL (70-100); MAGNESIUM 2.2 mg/dL (1.6-2.3); POTASSIUM 3.7 mEq/L (3.5-5.2); SODIUM 133 mEq/L (134-144)
[2016-11-16] MEDS: HEPARIN 5,000 UNIT/0.5 ML SYR SC SCH ×3 (06:09→21:28)
[2016-11-16] MEDS: hydrALAZINE 25 MG TAB PO SCH ×4 (06:10→20:07)
[2016-11-16] MEDS: niCARdipine/NACL 200 ML IV SCH ×2 (06:13→08:20)
[2016-11-16] MEDS: NS 1,000 ML IV SCH (06:13)
[2016-11-16] MEDS: LISINOPRIL 5 MG TAB PO SCH (08:20)
[2016-11-16] MEDS: POTASSIUM CL 20 MEQ TAB PO SCH ×3 (08:20→20:07)
[2016-11-16] MEDS: ASPIRIN EC 325 MG TAB PO SCH (08:21)
--- NOTE | 2016-11-16 10:04 | HOSPPROG ---
Hospitalist Progress Note Assessment/Plan: #Hypertensive emergency: -appreciate Dr. Mckeon's, Dr. Maradiaga's consultation -titrate off Cardene. Scheduled Hydral. Lisinopril, Norvasc -caution with Labetalol with severe bradycardia in ER - CTH negative for ischemia #ARF vs. CKD: appreciate renal consultation -awaiting serologic/immunologic labs - No renal artery stenosis on US #Indeterminate troponin -due to elevated BP. Not acutely having ACS. EKG with LVH, no wall motion abnormalities #Nausea: resolved. Related to HTN, improved with BP reduction #Hypokalemia: repleted #Hypovolemic hyponatremia -give IVFs despite high BP, bc these patients in fact are very volume-depleted #Diet: regular #DVT ppx: SQH Disp: warrants ICU admission with HTN emergency. Cont IV anti-hypertensives, telemetry Subjective: no AVALOS, CP or nausea Objective: Vital Signs Temp Pulse Resp BP Pulse Ox 37.1 C 85 16 156/70 H 98 11/16/16 00:00 11/16/16 07:00 11/16/16 07:00 11/16/16 08:21 11/16/16 07:00 Laboratory Results 11/15/16 04:20 11/16/16 04:55 11/15/16 11/16/16 11/17/16 05:59 05:59 05:59 Intake Total 1729 4566 Output Total 280 1650 250 Balance 1449 2916 -250 PT 13.4 SEC (12.0-15.0) 11/14/16 19:13 INR 1.03 (0.83-1.16) 11/14/16 19:13 - Physical Exam Constitutional: no apparent distress Eyes: PERRL Ears, Nose, Mouth, Throat: moist mucous membranes, hearing normal Cardiovascular: systolic murmur (2/6 murmur RLSB), edema (no edema) Respiratory: no respiratory distress, no rales or rhonchi Gastrointestinal: normoactive bowel sounds, soft, non-tender abdomen Genitourinary: no bladder fullness Skin: warm Musculoskeletal: full muscle strength Neurologic: AAOx3 ICD10 Worksheet Patient Problems: Problems Problem Status Onset Elevated troponin Acute Hypertension Acute Hypertensive emergency Acute
--- NOTE | 2016-11-16 11:55 | SOAPPROG ---
SOAP Progress Note Assessment/Plan: Assessment: HTN better, bp about at goal SBP 150-160's tolerating PO meds hydralazine 25 QID norvasc 10 D lisinopril 5 D Nicardipine is off KATIE vs CKD-4, creat stable about 3 headache is better with improved BP Plan: await serologic/immunologic work up results continue PO meds frequent BP checks follow lytes vol and renal function no urgent HD needs at this point 11/16/16 11:50 Subjective: feels a lot better than he did 2 days ago denies fever chills nausea or vomiting headache nearly completely gone appetite OK still not a lot of energy spirits good Objective: Vital Signs Temp Pulse Resp BP Pulse Ox 37.1 C 85 16 156/70 H 98 11/16/16 00:00 11/16/16 07:00 11/16/16 07:00 11/16/16 08:21 11/16/16 07:00 Laboratory Results 11/15/16 04:20 11/16/16 04:55 11/15/16 11/16/16 11/17/16 05:59 05:59 05:59 Intake Total 1729 4566 Output Total 280 1650 250 Balance 1449 2916 -250 PT 13.4 SEC (12.0-15.0) 11/14/16 19:13 INR 1.03 (0.83-1.16) 11/14/16 19:13 Physical Exam - Physical Exam General Appearance: alert, no apparent distress Respiratory: lungs clear, No rales, No rhonchi, No wheezing Cardiac/Chest: regular rate, rhythm, systolic murmur, No gallop, No friction rub Abdomen: normal bowel sounds, non-tender, soft Neuro/Psych: alert, normal mood/affect, oriented x 3 ICD10 Worksheet Patient Problems: Problems Problem Status Onset Elevated troponin Acute Hypertension Acute Hypertensive emergency Acute
[2016-11-16] MEDS: hydrALAZINE 20 MG/ML VIAL IVP PRN ×2 (13:11→22:24)
[2016-11-16 13:54] LABS: GLOMERULAR BSMNT MEMBRANE IGG <0.2 U
[2016-11-16 15:35] LABS: C3 COMPLEMENT COMPONENT 70 mg/dL (75 - 175); C4 COMPLEMENT COMPONENT 19 mg/dL (14 - 40)
--- NOTE | 2016-11-16 15:35 | PDINTPN ---
Network Technical Analyst Progress Note Assessment/Plan: Assessment/plan: 51 M admitted with hypertensive emergency after c/o headaches and found to have BP around 250/170 and with KATIE. Treated with nipride then nicardipine drips and added oral HTN meds with good response. Good UOP and improved creatinine. * HTN- previously unrecognized but better now on multiple oral meds. Renal work- up underway. * KATIE- probably from untreated HTN, though other etiologies not yet ruled out. * * OK for floor Objective: Vital Signs Temp Pulse Resp BP Pulse Ox 37.1 C 85 16 168/89 H 98 11/16/16 00:00 11/16/16 07:00 11/16/16 07:00 11/16/16 13:11 11/16/16 07:00 Laboratory Results 11/15/16 04:20 11/16/16 04:55 11/15/16 11/16/16 11/17/16 05:59 05:59 05:59 Intake Total 1729 4566 Output Total 280 1650 250 Balance 1449 2916 -250 PT 13.4 SEC (12.0-15.0) 11/14/16 19:13 INR 1.03 (0.83-1.16) 11/14/16 19:13 Physical Exam - Physical Exam General Appearance: WD/WN, alert, no apparent distress EENT: PERRL/EOMI Neck: supple Respiratory: lungs clear, normal breath sounds, No respiratory distress Cardiac/Chest: normal peripheral pulses, regular rate, rhythm, No edema Abdomen: non-tender, soft, No distended Skin: normal color, warm/dry Lymphatic: no adenopathy Neuro/Psych: alert, normal mood/affect, oriented x 3 ICD10 Worksheet Patient Problems: Problems Problem Status Onset Elevated troponin Acute Hypertension Acute Hypertensive emergency Acute
[2016-11-16 16:02] LABS: IG KAPPA FREE LIGHT CHAIN 4.43 mg/dL; IG LAMBDA FREE LIGHT CHAIN 2.36 mg/dL; KAPPA/LAMBDA RATIO 1.88
[2016-11-16] MEDS: ACETAMINOPHEN 500 MG TAB PO PRN (19:24)
[2016-11-16] MEDS: SENNOSIDES/DOCUSATE SODIUM TAB PO PRN (20:52)
--- NOTE | 2016-11-16 21:42 | PDCARPN ---
Cardiology Progress Note Assessment/Plan: 51-year-old male admitted with hypertensive urgency after presenting with headache. Echocardiogram demonstrates normal left ventricular systolic function and LVH consistent with untreated hypertension. Blood pressure severely elevated at presentation. Improving on medical therapy. Mildly elevated troponin likely secondary to myocardial oxygen supply/demand mismatch in the setting of profound hypertension and, in addition, renal insufficiency. No symptoms suggestive of angina, CHF, or arrhythmias. Abnormal ECG on admission consistent with left ventricular hypertrophy and repolarization abnormalities. Will defer to nephrology regarding his antihypertensive medication regimen. No further specific cardiac testing indicated at this time. Apart from newly diagnosed hypertension, has a relatively low risk profile for CAD. Can consider a noninvasive evaluation for ischemia as an outpatient. Will sign off. Please call for any questions. 11/16/16 21:37 Subjective: No chest pain, dyspnea, or palpitations. Reviewed/Discussed With: family Objective: Vital Signs (8 Hrs) Temp Pulse Resp BP Pulse Ox 11/16/16 20:07 185/82 H 11/16/16 20:00 37.1 C 93 22 H 185/82 H 98 11/16/16 17:00 95 20 160/78 H 98 11/16/16 16:00 82 20 151/74 H 97 11/16/16 15:59 151/77 H 11/16/16 15:00 79 15 158/76 H 97 11/16/16 14:00 88 18 151/77 H 98 Intake/Output (24 Hrs) 11/15/16 11/16/16 11/17/16 05:59 05:59 05:59 Intake Total 1729 4566 850 Output Total 280 1650 1025 Balance 1449 2916 -175 Intake: Oral (ml) 400 400 850 IV Intake (ml) 773 IV Infused (ml) 556 4166 Nitroprusside Sodium 50 356 383 mg In D5w 250 ml @ As Directed IV CONT DANIEL Rx#: [id number] Ns 1,000 ml @ 100 mls/hr 2481 IV CONT DANIEL Rx#: [id number] niCARdipine/NACL 200 ml @ 1302 Titrate IV CONT DANIEL Rx#: [id number] Output: Urine (ml) 280 1650 1025 Urinal 280 1650 1025 Other: Weight 92.3 kg Number of Stools Urinal 1 Result Diagrams: 11/15/16 04:20 11/16/16 04:55 Cardiac Labs: Cardiac Lab Results (72 Hrs) 11/15/16 11/14/16 04:20 22:50 Troponin I 0.218 H 0.193 H - Physical Exam Constitutional: WDWN, healthy appearing, no apparent distress Eyes: anicteric sclera Ears, Nose, Mouth, Throat: moist mucous membranes Cardiovascular: regular rate and rhythm, no murmurs, no rubs, no gallops Respiratory: clear to auscultate bilat Gastrointestinal: normoactive bowel sounds, no tenderness, no masses Skin: no rashes, no edema Neurologic: AAOx3 Psychiatric: not anxious ICD10 Worksheet Patient Problems: Problems Problem Status Onset Elevated troponin Acute Hypertension Acute Hypertensive emergency Acute
[2016-11-17] MEDS: hydrALAZINE 25 MG TAB PO SCH ×4 (04:48→20:06)
[2016-11-17] MEDS: HEPARIN 5,000 UNIT/0.5 ML SYR SC SCH ×3 (04:49→21:29)
[2016-11-17 05:12] LABS: ALBUMIN 3.1 g/dL (3.5-5.0); ANION GAP 7 mEq/L (8-16); CALCIUM 8.7 mg/dL (8.5-10.4); CARBON DIOXIDE 22 mEq/l (22-31); CHLORIDE 108 mEq/L (97-110); CREATININE 2.9 mg/dL (0.7-1.3); GLOMERULAR FILTRATION RATE 23; GLUCOSE 91 mg/dL (70-100); MAGNESIUM 2.1 mg/dL (1.6-2.3); POTASSIUM 4.2 mEq/L (3.5-5.2); SODIUM 137 mEq/L (134-144)
[2016-11-17] MEDS: hydrALAZINE 20 MG/ML VIAL IVP PRN ×4 (06:16→23:18)
[2016-11-17] MEDS: ASPIRIN EC 325 MG TAB PO SCH (08:12)
[2016-11-17] MEDS: LISINOPRIL 5 MG TAB PO SCH ×2 (08:12→09:21)
[2016-11-17] MEDS: POTASSIUM CL 20 MEQ TAB PO SCH (08:16)
[2016-11-17] MEDS: ACETAMINOPHEN 500 MG TAB PO PRN (09:31)
--- NOTE | 2016-11-17 10:14 | SOAPPROG ---
SOAP Progress Note Assessment/Plan: Assessment:Plan: HTN-off drips since yesterday -increased BP and headache this morning -on amlodipine 10, lisinopril 5 and hydralazine 25 Qid -will treat headache -ambulate -increase lisinopril to 10, will consider second dose this afternoon depending on response to the above -I would like to slowly maximize the TITO-i due to the patient's severe LVH -I will increase the frequency of his Hydralazine 10mg IV to Q4 dosing to cover his BP needs while awaiting the other drugs to reach effect -goal BP systolic 130-150 today -plasma catecholamines pending -TSH normal Hypokalemia-resolved -will stop K supplementation -renin/sondra pending -if K falls off supplementation and renin/sondra ratio abnormal, will need eval for functional adenoma Renal-SPEP negative, ANCA negative, Hep B&C negative -LEONA pending -kappa free light chains and kappa/lambda ratio abnormal, but with normal SPEP we can simply repeat this down the road -obviously, severe LVH raises the question of amyloid, but I did not see any other reference to changes on echo that would contribute to this concern 11/17/16 10:01 Subjective: headache upon awakening this morning, mental status fine yesterday when BP's were lower Objective: Vital Signs Temp Pulse Resp BP Pulse Ox 36.7 C 88 25 H 190/88 H 97 11/17/16 08:00 11/17/16 08:00 11/17/16 08:00 11/17/16 08:16 11/17/16 08:00 Laboratory Results 11/15/16 04:20 11/17/16 04:35 11/16/16 11/17/16 11/18/16 05:59 05:59 05:59 Intake Total 4566 850 Output Total 1650 5 700 Balance 2916 -1175 -700 PT 13.4 SEC (12.0-15.0) 11/14/16 19:13 INR 1.03 (0.83-1.16) 11/14/16 19:13 Physical Exam - Physical Exam General Appearance: WD/WN, alert, mild distress EENT: normal ENT inspection Neck: normal inspection Respiratory: lungs clear, normal breath sounds, No respiratory distress Cardiac/Chest: regular rate, rhythm, systolic murmur Abdomen: normal bowel sounds, non-tender, soft Extremities: No swelling ICD10 Worksheet Patient Problems: Problems Problem Status Onset Elevated troponin Acute Hypertension Acute Hypertensive emergency Acute
[2016-11-17 14:19] LABS: ANTINUCLEAR ANTIBODIES SCREEN 0.88 UNITS (<=1.00)
--- NOTE | 2016-11-17 17:11 | HOSPPROG ---
Hospitalist Progress Note Assessment/Plan: * HTN emergency -off IV cardene drip - continue IV hydralazine prn -norvasc, lisinopril, PO hydralazine per renal * Acute renal failure - may be new baseline -likely due to longstanding untreated HTN * Borderline troponin -likely strain due to severe HTN -eventual stress test * AVALOS - migraine vs. due to HTN * Hypokalemia - renin/sondra pending Subjective: No new complaints. Objective: Vital Signs Temp Pulse Resp BP Pulse Ox 36.6 C 93 24 H 165/84 H 95 11/17/16 15:55 11/17/16 15:55 11/17/16 15:55 11/17/16 15:55 11/17/16 15:55 Laboratory Results 11/15/16 04:20 11/17/16 04:35 11/16/16 11/17/16 11/18/16 05:59 05:59 05:59 Intake Total 4566 850 500 Output Total 1650 2025 1200 Balance 2916 -1175 -700 PT 13.4 SEC (12.0-15.0) 11/14/16 19:13 INR 1.03 (0.83-1.16) 11/14/16 19:13 d/w Dr. Morteza augustin for transfer out of SDU to PCU today tele reviewed - NSR - Physical Exam Constitutional: no apparent distress, appears nourished, not in pain Cardiovascular: regular rate and rhythym, no murmur, rub, or gallop Respiratory: no respiratory distress, no rales or rhonchi, clear to auscultation Gastrointestinal: normoactive bowel sounds, soft, non-tender abdomen, no palpable masses Skin: no rashes or abrasions, no fluctuance, no induration Neurologic: AAOx3, sensation intact bilaterally Psychiatric: interacting appropriately, not anxious, not encephalopathic, thought process linear ICD10 Worksheet Patient Problems: Problems Problem Status Onset Elevated troponin Acute Hypertension Acute Hypertensive emergency Acute
[2016-11-17] MEDS ORDERED: LISINOPRIL 10 MG TAB PO ONE (19:57)
--- NOTE | 2016-11-17 20:01 | SOAPPROG ---
SOAP Progress Note Assessment/Plan: Assessment:Plan: HTN-BP noted to be up again later today on electronic chart review -discussed with [employer] -will give an additional one time dose of lisinopril 10mg.. -she states she will give his evening medications early, which is reasonable -plan to use his IV prn hydralazine as needed overnite as previously ordered -adjust BP meds further in morning if needed -his current dosing of oral BP medications have not had time to achieve a steady state in his system Objective: Vital Signs Temp Pulse Resp BP Pulse Ox 36.6 C 93 24 H 189/87 H 95 11/17/16 15:55 11/17/16 15:55 11/17/16 15:55 11/17/16 18:18 11/17/16 15:55 Laboratory Results 11/15/16 04:20 11/17/16 04:35 11/16/16 11/17/16 11/18/16 05:59 05:59 05:59 Intake Total 4566 850 2000 Output Total 1650 2025 1700 Balance 2916 -1175 300 PT 13.4 SEC (12.0-15.0) 11/14/16 19:13 INR 1.03 (0.83-1.16) 11/14/16 19:13 ICD10 Worksheet Patient Problems: Problems Problem Status Onset Elevated troponin Acute Hypertension Acute Hypertensive emergency Acute
[2016-11-17] MEDS ORDERED: CALCIUM CARBONATE 500 MG CHEWABLE TAB PO PRN (21:10)
[2016-11-18] MEDS: hydrALAZINE 20 MG/ML VIAL IVP PRN ×3 (05:09→22:50)
[2016-11-18] MEDS: hydrALAZINE 25 MG TAB PO SCH ×4 (05:26→20:14)
[2016-11-18] MEDS: HEPARIN 5,000 UNIT/0.5 ML SYR SC SCH (05:27)
[2016-11-18 05:32] LABS: % IMMATURE GRANULYOCYTES 0.4 % (0.0-1.1); ABSOLUTE IMMATURE GRANULOCYTES 0.03 10^3/uL (0.00-0.10); ADD DIFF? NO; ADD MORPH? NO; ADD SCAN? NO; ATYPICAL LYMPHOCYTE FLAG 0 (0-99); FRAGMENT RBC FLAG 0 (0-99); HEMATOCRIT 28.9 % (40.0-51.0); HEMOGLOBIN 9.7 g/dL (13.7-17.5); LEFT SHIFT FLG 0 (0-99); LIPEMIA HEMOLYSIS FLAG 80 (0-99); MEAN CELL HEMOGLOBIN 31.1 pg (27.9-34.1); MEAN CELL HEMOGLOBIN CONCENTR. 33.6 g/dL (32.4-36.7); MEAN CELL VOLUME 92.6 fL (81.5-99.8); MEAN PLATELET VOLUME 11.1 fL (8.7-11.7); PLATELET CLUMPS FLAG 10 (0-99); PLATELET COUNT 85 10^3/uL (150-400); RED BLOOD CELL COUNT 3.12 10^6/uL (4.40-6.38); RED CELL DISTRIBUTION WIDTH 14.2 % (11.5-15.2)
[2016-11-18 05:42] LABS: ANION GAP 7 mEq/L (8-16); CALCIUM 8.6 mg/dL (8.5-10.4); CARBON DIOXIDE 22 mEq/l (22-31); CHLORIDE 108 mEq/L (97-110); CREATININE 2.8 mg/dL (0.7-1.3); GLOMERULAR FILTRATION RATE 24; GLUCOSE 88 mg/dL (70-100); MAGNESIUM 2.1 mg/dL (1.6-2.3); POTASSIUM 4.1 mEq/L (3.5-5.2); SODIUM 137 mEq/L (134-144)
[2016-11-18] MEDS: ASPIRIN EC 325 MG TAB PO SCH (08:11)
[2016-11-18] MEDS: LISINOPRIL 5 MG TAB PO SCH (08:12)
--- NOTE | 2016-11-18 10:48 | SOAPPROG ---
SOAP Progress Note Assessment/Plan: Assessment: 1. Malignant HTN. BP improving. Goal SBP 150-160 for a couple weeks. Slightly above this. Await sondra/PRA. Increase lisinopril to 20mg/d. 2. CKD III. Proteinuria >3g. K:L slightly elevated - 1.88, questionable significance. C3 slightly low. LEONA, MPO, PR3, GBM negative. Await other serologies to sort out whether primary GN vs secondary to htn. 3. AVALOS. Improving with BP control. 4. Dispo. Can go to floor with q4h vitals from renal view. Plan: 11/18/16 10:45 11/18/16 10:48 Subjective: AVALOS improving. Objective: Vital Signs Temp Pulse Resp BP Pulse Ox 36.7 C 84 17 170/87 H 95 11/18/16 07:42 11/18/16 09:28 11/18/16 07:42 11/18/16 09:35 11/18/16 07:42 Laboratory Results 11/18/16 05:00 11/18/16 05:00 11/17/16 11/18/16 11/19/16 05:59 05:59 05:59 Intake Total 850 2000 Output Total 2024 2600 Balance -1175 -600 PT 13.4 SEC (12.0-15.0) 11/14/16 19:13 INR 1.03 (0.83-1.16) 11/14/16 19:13 In bed. Comfortable, alert wm RRR, II/ systolic murmur, no g/r CTAB Abdom soft, nt No LE edema ICD10 Worksheet Patient Problems: Problems Problem Status Onset Hypertension Acute Hypertensive emergency Acute Elevated troponin Acute
[2016-11-18 13:47] LABS: RENIN ACTIVITY PLASMA 72 ng/mL/h
[2016-11-18 14:10] LABS: METANEPHRINES PLASMA METAP 0.44 nmol/L (<0.50)
[2016-11-18 15:14] LABS: ALDOSTERONE SERUM 23 ng/dL (<=21)
--- NOTE | 2016-11-18 16:08 | HOSPPROG ---
Hospitalist Progress Note Assessment/Plan: * HTN emergency -continue IV hydralazine prn until BP better controlled -goal SBP 150-160 -norvasc, lisinopril, PO hydralazine per renal -increase lisinopril -w/u for secondary HTN per renal -hopefully transition to outpatient treatment soon * Acute renal failure - may be new baseline -likely due to longstanding untreated HTN ->3gm proteinuria - continue ACEI * Borderline troponin -likely strain due to severe HTN -eventual stress test - outpatient * Abnormal kappa/lambda ratio - SPEP normal -repeat as outpatient * AVALOS - migraine vs. due to HTN * Hypokalemia - renin/sondra pending * Thrombocytopenia -DC heparin - ambulate Subjective: Feels well. Wishes to ambulate so may DC heparin sq Objective: Vital Signs Temp Pulse Resp BP Pulse Ox 36.8 C 85 20 133/73 H 96 11/18/16 12:00 11/18/16 15:05 11/18/16 12:00 11/18/16 15:05 11/18/16 12:00 Laboratory Results 11/18/16 05:00 11/18/16 05:00 11/17/16 11/18/16 11/19/16 05:59 05:59 05:59 Intake Total 850 2000 Output Total 2024 2599 Balance -1175 -600 PT 13.4 SEC (12.0-15.0) 11/14/16 19:13 INR 1.03 (0.83-1.16) 11/14/16 19:13 - Physical Exam Constitutional: no apparent distress, appears nourished, not in pain Cardiovascular: regular rate and rhythym, no murmur, rub, or gallop Respiratory: no respiratory distress, no rales or rhonchi, clear to auscultation Gastrointestinal: normoactive bowel sounds, soft, non-tender abdomen, no palpable masses Skin: no rashes or abrasions, no fluctuance, no induration Neurologic: AAOx3, sensation intact bilaterally Psychiatric: interacting appropriately, not anxious, not encephalopathic, thought process linear ICD10 Worksheet Patient Problems: Problems Problem Status Onset Elevated troponin Acute Hypertension Acute Hypertensive emergency Acute
[2016-11-19] MEDS: hydrALAZINE 25 MG TAB PO SCH ×4 (05:04→20:58)
[2016-11-19 05:54] LABS: ALBUMIN 3.3 g/dL (3.5-5.0); ANION GAP 8 mEq/L (8-16); CALCIUM 8.7 mg/dL (8.5-10.4); CARBON DIOXIDE 21 mEq/l (22-31); CHLORIDE 107 mEq/L (97-110); CREATININE 2.9 mg/dL (0.7-1.3); GLOMERULAR FILTRATION RATE 23; GLUCOSE 113 mg/dL (70-100); MAGNESIUM 2.1 mg/dL (1.6-2.3); POTASSIUM 4.6 mEq/L (3.5-5.2); SODIUM 136 mEq/L (134-144)
[2016-11-19] MEDS ORDERED: LISINOPRIL 20 MG TAB PO SCH (07:30)
[2016-11-19] MEDS: ASPIRIN EC 325 MG TAB PO SCH (07:50)
[2016-11-19] MEDS: ACETAMINOPHEN 500 MG TAB PO PRN (07:50)
[2016-11-19] MEDS: hydrALAZINE 20 MG/ML VIAL IVP PRN ×2 (09:22→15:55)
--- NOTE | 2016-11-19 13:27 | SOAPPROG ---
SOAP Progress Note Assessment/Plan: Assessment: 1. Malignant HTN. BP improving. Goal SBP 150-160 for a couple weeks. Slightly above this. Await sondra/PRA. Increased lisinopril to 20mg/d this am. BP at goal. May need extra dose of lisinopril in evening. Would watch tonight. D/c tomorrow am if controlled. 2. CKD III. Proteinuria >3g. K:L slightly elevated - 1.88, questionable significance. C3 slightly low. LEONA, MPO, PR3, GBM negative. Hep B/C neg. Most likely secondary to htn. 3. AVALOS. Improving with BP control. 4. Dispo. Needs close f/u with our office as outpatient. Plan: 11/18/16 10:45 11/18/16 10:48 11/19/16 13:25 11/19/16 13:26 Subjective: AVALOS better this am. BPs spiked over night. Objective: Vital Signs Temp Pulse Resp BP Pulse Ox 37.1 C 89 16 150/92 H 94 11/19/16 11:15 11/19/16 11:15 11/19/16 11:15 11/19/16 11:15 11/19/16 11:15 Laboratory Results 11/18/16 05:00 11/19/16 05:15 11/18/16 11/19/16 11/20/16 05:59 05:59 05:59 Intake Total 2000 1000 Output Total 2600 Balance -600 1000 PT 13.4 SEC (12.0-15.0) 11/14/16 19:13 INR 1.03 (0.83-1.16) 11/14/16 19:13 In bed RRR, no m/g/r CTAB Abdom soft, nt No edema ICD10 Worksheet Patient Problems: Problems Problem Status Onset Hypertension Acute Hypertensive emergency Acute Elevated troponin Acute
--- NOTE | 2016-11-19 17:12 | HOSPPROG ---
Hospitalist Progress Note Assessment/Plan: * HTN emergency -continue IV hydralazine prn until BP better controlled -goal SBP 150-160 -norvasc, lisinopril, PO hydralazine per renal -increase lisinopril -w/u for secondary HTN per renal -hopefully transition to outpatient treatment soon * Acute renal failure - may be new baseline -likely due to longstanding untreated HTN ->3gm proteinuria - continue ACEI * Borderline troponin -likely strain due to severe HTN -eventual stress test - outpatient * Abnormal kappa/lambda ratio - SPEP normal -repeat as outpatient * AVALOS - migraine vs. due to HTN * Hypokalemia - renin/sondra pending * Thrombocytopenia -DC heparin - ambulate Subjective: Still very high BP using frequent IV hydralazine Objective: Vital Signs Temp Pulse Resp BP Pulse Ox 37.1 C 82 16 178/96 H 96 11/19/16 15:55 11/19/16 15:55 11/19/16 11:15 11/19/16 16:44 11/19/16 15:55 Laboratory Results 11/18/16 05:00 11/19/16 05:15 11/18/16 11/19/16 11/20/16 05:59 05:59 05:59 Intake Total 2000 1000 Output Total 2600 Balance -600 1000 PT 13.4 SEC (12.0-15.0) 11/14/16 19:13 INR 1.03 (0.83-1.16) 11/14/16 19:13 - Physical Exam Constitutional: no apparent distress, appears nourished, not in pain Cardiovascular: regular rate and rhythym, no murmur, rub, or gallop Respiratory: no respiratory distress, no rales or rhonchi, clear to auscultation Gastrointestinal: normoactive bowel sounds, soft, non-tender abdomen, no palpable masses Skin: no rashes or abrasions, no fluctuance, no induration Neurologic: AAOx3, sensation intact bilaterally Psychiatric: interacting appropriately, not anxious, not encephalopathic, thought process linear ICD10 Worksheet Patient Problems: Problems Problem Status Onset Elevated troponin Acute Hypertension Acute Hypertensive emergency Acute
[2016-11-19] MEDS: LISINOPRIL 20 MG TAB PO SCH (17:37)
[2016-11-19] MEDS ORDERED: DIAZEPAM 5 MG TAB PO PRN (20:32)
[2016-11-19] MEDS ORDERED: CYCLOBENZAPRINE 10 MG TAB PO SCH (22:00)
[2016-11-20] MEDS: hydrALAZINE 20 MG/ML VIAL IVP PRN ×2 (00:19→08:33)
[2016-11-20 07:48] LABS: % IMMATURE GRANULYOCYTES 0.5 % (0.0-1.1); ABSOLUTE IMMATURE GRANULOCYTES 0.03 10^3/uL (0.00-0.10); ADD DIFF? NO; ADD MORPH? NO; ADD SCAN? NO; ATYPICAL LYMPHOCYTE FLAG 0 (0-99); FRAGMENT RBC FLAG 40 (0-99); HEMATOCRIT 29.4 % (40.0-51.0); HEMOGLOBIN 9.8 g/dL (13.7-17.5); LEFT SHIFT FLG 0 (0-99); LIPEMIA HEMOLYSIS FLAG 80 (0-99); MEAN CELL HEMOGLOBIN 31.3 pg (27.9-34.1); MEAN CELL HEMOGLOBIN CONCENTR. 33.3 g/dL (32.4-36.7); MEAN CELL VOLUME 93.9 fL (81.5-99.8); MEAN PLATELET VOLUME 10.8 fL (8.7-11.7); PLATELET CLUMPS FLAG 0 (0-99); PLATELET COUNT 109 10^3/uL (150-400); RED BLOOD CELL COUNT 3.13 10^6/uL (4.40-6.38); RED CELL DISTRIBUTION WIDTH 13.6 % (11.5-15.2)
[2016-11-20 08:09] LABS: ANION GAP 7 mEq/L (8-16); CALCIUM 8.4 mg/dL (8.5-10.4); CARBON DIOXIDE 21 mEq/l (22-31); CHLORIDE 110 mEq/L (97-110); CREATININE 2.8 mg/dL (0.7-1.3); GLOMERULAR FILTRATION RATE 24; GLUCOSE 89 mg/dL (70-100); POTASSIUM 4.4 mEq/L (3.5-5.2); SODIUM 138 mEq/L (134-144)
[2016-11-20] MEDS: ASPIRIN EC 325 MG TAB PO SCH (08:32)
[2016-11-20] MEDS: LISINOPRIL 20 MG TAB PO SCH ×2 (08:32→20:36)
[2016-11-20] MEDS: ACETAMINOPHEN 500 MG TAB PO PRN (08:33)
[2016-11-20] MEDS: hydrALAZINE 25 MG TAB PO SCH ×6 (08:34→20:33)
[2016-11-20] MEDS ORDERED: CYCLOBENZAPRINE 10 MG TAB PO PRN (08:54)
--- NOTE | 2016-11-20 12:20 | SOAPPROG ---
SOAP Progress Note Assessment/Plan: Assessment: 1. Malignant HTN. BP improving slowly. Goal SBP 150-160 for a couple weeks. Still spiking well above this. Rod 23 PRA 70 c/w renin release from his kidney dz. Plasma free metanephrines 2.0 (uln <0.9) but hard to interpret in acute setting. Repeat as outpatient. Lisinopril 20mg BID, amlodipine 10mg QD, hydralazine 25mg QID. Increase hydralazine to 50mg QID. Increase threshold for iv to sbp > 190. OK to d/c once BP mostly <180 for 24h. 2. CKD III. Proteinuria >3g. K:L slightly elevated - 1.88, questionable significance. C3 slightly low. LEONA, MPO, PR3, GBM negative. Hep B/C neg. Most likely secondary to htn. 3. AVALOS. Improving with BP control. 4. Dispo. Needs close f/u with our office as outpatient. Plan: 11/18/16 10:45 11/18/16 10:48 11/19/16 13:25 11/19/16 13:26 11/20/16 12:17 11/20/16 12:18 Subjective: Had /10 AVALOS this am. BPs spiked to >190. Received IV hydralazine. Objective: Vital Signs Temp Pulse Resp BP Pulse Ox 37.0 C 79 19 193/99 H 96 11/20/16 11:45 11/20/16 11:45 11/20/16 11:45 11/20/16 11:45 11/20/16 11:45 Laboratory Results 11/20/16 06:20 11/20/16 06:20 11/19/16 11/20/16 11/21/16 05:59 05:59 05:59 Intake Total 1000 600 Balance 1000 600 PT 13.4 SEC (12.0-15.0) 11/14/16 19:13 INR 1.03 (0.83-1.16) 11/14/16 19:13 RRR, no m/g/r CTAB Abdom soft, nt No edema ICD10 Worksheet Patient Problems: Problems Problem Status Onset Hypertension Acute Hypertensive emergency Acute Elevated troponin Acute
--- NOTE | 2016-11-20 16:50 | HOSPPROG ---
Hospitalist Progress Note Assessment/Plan: * HTN emergency -norvasc, lisinopril, PO hydralazine uptitrated per renal -continue IV hydralazine prn until BP better controlled -goal SBP 150-160 -okay for discharge when SBP <180 without IV meds -w/u for secondary HTN unremarkable - suspect untreated essential -repeat plasma metanephrines as outpatient (slight up) * Acute renal failure - may be new baseline -likely due to longstanding untreated HTN ->3gm proteinuria - continue ACEI * Borderline troponin -likely strain due to severe HTN -eventual stress test - outpatient * Abnormal kappa/lambda ratio - SPEP normal -repeat as outpatient * AVALOS - migraine vs. due to HTN * Thrombocytopenia -DC heparin - ambulate Subjective: No new complaints. Objective: Vital Signs Temp Pulse Resp BP Pulse Ox 36.9 C 90 18 150/95 H 96 11/20/16 16:10 11/20/16 16:10 11/20/16 16:10 11/20/16 16:10 11/20/16 16:10 Laboratory Results 11/20/16 06:20 11/20/16 06:20 11/19/16 11/20/16 11/21/16 05:59 05:59 05:59 Intake Total 1000 600 Balance 1000 600 PT 13.4 SEC (12.0-15.0) 11/14/16 19:13 INR 1.03 (0.83-1.16) 11/14/16 19:13 d/w Dr. Schulte - no discharge yet tele reviewed - NSR - Physical Exam Constitutional: no apparent distress, appears nourished, not in pain Cardiovascular: regular rate and rhythym, no murmur, rub, or gallop Respiratory: no respiratory distress, no rales or rhonchi, clear to auscultation Gastrointestinal: normoactive bowel sounds, soft, non-tender abdomen, no palpable masses Skin: no rashes or abrasions, no fluctuance, no induration Neurologic: AAOx3, sensation intact bilaterally Psychiatric: interacting appropriately, not anxious, not encephalopathic, thought process linear ICD10 Worksheet Patient Problems: Problems Problem Status Onset Elevated troponin Acute Hypertension Acute Hypertensive emergency Acute
[2016-11-20] MEDS: SENNOSIDES/DOCUSATE SODIUM TAB PO PRN (20:35)
[2016-11-21] MEDS: hydrALAZINE 25 MG TAB PO SCH ×3 (06:04→12:49)
[2016-11-21 06:57] LABS: ALBUMIN 3.1 g/dL (3.5-5.0); ANION GAP 6 mEq/L (8-16); CALCIUM 8.8 mg/dL (8.5-10.4); CARBON DIOXIDE 22 mEq/l (22-31); CHLORIDE 108 mEq/L (97-110); CREATININE 2.9 mg/dL (0.7-1.3); GLOMERULAR FILTRATION RATE 23; GLUCOSE 88 mg/dL (70-100); POTASSIUM 4.8 mEq/L (3.5-5.2); SODIUM 136 mEq/L (134-144)
[2016-11-21] MEDS: LISINOPRIL 20 MG TAB PO SCH (08:07)
[2016-11-21] MEDS: ASPIRIN EC 325 MG TAB PO SCH (08:07)
[2016-11-21] MEDS: ACETAMINOPHEN 500 MG TAB PO PRN (08:10)
--- NOTE | 2016-11-21 10:50 | SOAPPROG ---
SOAP Progress Note Assessment/Plan: Assessment/Plan: Malignant HTN: improved, now SBP mostly in 160s on oral meds alone, has not needed IV meds since yesterday am. - Goal SBP is to be 150s-160s for a few weeks. - Continue his current po meds: amlodipine 10mg daily, lisinopril 20mg BID, and hydralazine 50mg QID. - Pt has elevated plasma metanephrines here, would recommend checking urine metanephrines as outpatient. - Pt will need f/u with PCP in 1 weeks and will arrange nephrology f/u in 2 weeks. CKD stage III: Cr remains stable at 2.9, likely due to HTN, likely has chronic kidney disease but could have some acute component given his presentation with malignant HTN. K/L ratio slightly elevated at 1.88 is of questionable significance. Remainder of serological workup negative. - No acute HD needs. - Will have pt f/u with us in nephrology clinic after discharge for further evaluation and management. Proteinuria: about 3g, now started on RAAS blockade, will continue to monitor as outpatient. Subjective: No acute events overnight. Pt has not had an IV dose of antihypertensives since 8:30am yesterday. His SBP is mostly 160s now. He states he feels better , not having much of a headache now, notices it happens when his BP is much worse. He is hoping to go home. Objective: Vital Signs Temp Pulse Resp BP Pulse Ox 36.4 C 79 13 165/96 H 96 11/21/16 07:42 11/21/16 07:42 11/21/16 07:42 11/21/16 09:25 11/21/16 07:42 Laboratory Results 11/20/16 06:20 11/21/16 06:13 11/20/16 11/21/16 11/22/16 05:59 05:59 05:59 Intake Total 600 350 Balance 600 350 PT 13.4 SEC (12.0-15.0) 11/14/16 19:13 INR 1.03 (0.83-1.16) 11/14/16 19:13 General: alert and oriented, no acute distress Eyes; EOMI, PERRL OP: Clear CV: RRR Resp: nonlabored respirations on RA Abd: Soft, NT/ND Ext: no edema BLE Neuro: CN II-XII grossly intact, no asterixis Psych: cooperative, appropriate mood and affect ICD10 Worksheet Patient Problems: Problems Problem Status Onset Elevated troponin Acute Hypertension Acute Hypertensive emergency Acute
[2016-11-21 11:12] VITALS: BP 163/99; PULSE 88; RESP 17; TEMP 98.8; O2SAT 95
--- NOTE | 2016-11-21 17:31 | PDDCSUM ---
Discharge Summary Discharge Summary: DISCHARGE SUMMARY FOLLOW-UP ITEMS: Follow-up creatinine BUN and lytes later this week, adjust blood pressure med accordingly DATE OF ADMISSION: 11/14/2016 DATE OF DISCHARGE: 11/21/16 DISCHARGE DIAGNOSES: 1. Acute hypertensive emergency 2. Acute kidney injury 3. Abnormal troponin 4. Abnormal kappa/lambda ratio 5. Acute headache 6. Acute hyponatremia CONSULTATIONS: Nephrology PROCEDURES / IMAGING: Echocardiogram demonstrating normal ejection fraction, severe LVH, no focal wall motion abnormalities, renal ultrasound demonstrating possible nephrolithiasis, no evidence of hydronephrosis CHIEF COMPLAINT: Acute headache SUBJECTIVE: No headache at time of discharge PHYSICAL EXAM ON DISCHARGE: Systolic blood pressure is 150 to 170, heart rate 70 to 80, alert awake oriented x3, facial symmetry LABS ON DISCHARGE: Creatinine 2.9, serum sodium 136 HOSPITAL COURSE BY PROBLEM: 1. Acute hypertensive emergency. Evidenced by systolic blood pressure near 280 on presentation with symptoms including headache, end-organ failure including acute kidney injury and abnormal troponin, requiring IV antihypertensives and introduction up titration of oral antihypertensive medications. Is suspected that the patient has had chronic hypertension given his severe LVH and this has been left untreated as the patient has not had any recent medical attention. He is currently receiving maximum dosages of Norvasc and lisinopril, as well as high-dose hydralazine. His systolic blood pressure has stabilized in the 150- 170 range and is appropriate for further titration and introduction of potentially 4th agent to occur in the outpatient setting so he does not experience too rapid of a decline and worsening end-organ perfusion. He will have repeat blood pressure check later this week and primary care provider office as well as next week at the Nephrology office. Workup for secondary hypertension here was unremarkable with marginally elevated metanephrines and a normal SPEP. He should likely have an outpatient sleep study performed. 2. Acute kidney injury. Creatinine radha to greater than 3, was improving with control of blood pressure, secondary to hypertensive damage and evidence of cortical thinning on renal ultrasound. The patient may very well have a chronic component which will develop after this hospitalization and his creatinine BUN and lytes should be repeated later this week with results to Dr. Maradiaga. The patient will follow up with Dr. Maradiaga next week. It should be noted that he does have a significant amount of proteinuria, nearly 3 g on spot urine, and an Nico inhibitor has been initiated. 3. Abnormal troponin. Most likely secondary to strain in the setting of severe hypertension, recommend outpatient stress test to be arranged through his outpatient provider office. 4. Abnormal kappa/lambda ratio. His SPEP was normal, he should have repeat outpatient labs through primary care and/or nephrology office once his acute situation has stabilized. 5. Headache. Acute, advised the patient to utilize Tylenol for pain control and avoid nonsteroidal anti-inflammatory medications. 6. Hyponatremia. Acute, most likely secondary to renal hypoperfusion in the setting of kidney injury as outlined above, improving at time of discharge, will follow up labs next week at primary thermodynamicist office. DISCHARGE MEDICATIONS: Please see official discharge medication reconciliation sheet in chart hydralazine 50 mg four times daily, lisinopril 20 mg twice daily, Norvasc 10 mg daily DISCHARGE INSTRUCTIONS: Patient will follow up with Dr. Stewart later this week, Dr. Maradiaga next week, get outpatient stress test. TIME SPENT: Greater than 30 minutes were spent on direct patient care, as well as discharge planning and preparation.
== END 2016-11-21 14:35 | disposition home or self-care (01) | DRG 305 ==
LOC: F2N 22:08 → F2W 11-18 15:13
PROVIDERS: ADMIT Hospitalist; ATTEND Internal Medicine
PROC: 02HV33Z Insertion of Infusion Device into Superior Vena Cava, Percutaneous Approach (ICD-10-PCS; principal; 2016-11-15)
DX: I16.1 Hypertensive emergency (principal); N17.9 Acute kidney failure, unspecified; R51 Headache; E87.1 Hypo-osmolality and hyponatremia; E87.6 Hypokalemia
CPT/HCPCS: 82088-90; 83516-90; 83520-90; 83835-90; 84244-90; 96374; C1751; G0472; J0360; J2405; J2997; J3490